=== PATIENT | male | born 1935 | race Caucasian/White ===

== ENCOUNTER 2017-06-18 12:19 | Emergency (ER) | payer MEDICARE, OTHER ==
[~2017-06-18] VITALS: Ht 170.2 cm; Wt 81.4 kg
[~2017-06-18 12:19] MED LIST: ASPIRIN E.C. 8181 MG PO; ATACAND32 MG PO; AVODART0.5 MG PO; BENADRYL25 M2; BIOTIN1 MG PO; CALCIUM + D 6001 TA1 PO; CARDURA 8MG TAB8 MG PO; CELEXA 20MG20 MG/TAB PO; DARVOCET N 101 UDTAB PO; DITROPAN 5MG TAB5 MG; DITROPAN 5MG TAB5 MG PO; FEXOFENADINE180 MG PO; GLUCOPHAGE XR500 M1 PO; LEVOTHYROXIN0.025 MG PO; LEXAPRO10 MG PO; METFORMIN500 MG PO; MICARDIS80 MG PO; NASOCORT; OMEGA 31000 MG PO; PREDNISONE20 MG PO; PRILOSEC20 MG PO; SIMVASTATIN20 MG PO; THERAPEUTIC VIT1 CAP PO; TRIAMTERENE/HCT1 TAB PO; [UNRECOGNIZED DRUG - MIXTURE]
[2017-06-18 12:30] VITALS: TEMP 98.5
[2017-06-18] MEDS ORDERED: NORVASC 5MG5 MG/TAB PO (12:37)
[2017-06-18] MEDS ORDERED: PHENERGAN W/CO120 M1 PO (12:54)
[2017-06-18] MEDS ORDERED: EPIPEN 2-PAK1 MG/ML IM (12:54)
[2017-06-18] MEDS ORDERED: PROSCAR 5MG5 MG PO (12:55)
[2017-06-18] MEDS ORDERED: FLONASE NASAL S16 GM NS (12:55)
[2017-06-18] MEDS ORDERED: ALLEGRA ALLERG180 MG PO (12:55)
[2017-06-18] MEDS ORDERED: NORCO 325 MG-51 TAB (12:57)
[2017-06-18] MEDS ORDERED: GLUCOTROL 5M5 MG/TAB PO (12:58)
[2017-06-18] MEDS ORDERED: COZAAR100 MG PO (12:59)
[2017-06-18] MEDS ORDERED: ACULAR 3 ML3 ML OU (12:59)
[2017-06-18] MEDS ORDERED: LANTUS100 U/ML SQ (12:59)
[2017-06-18] MEDS ORDERED: MAGNESIUM500 MG PO (13:00)
[2017-06-18] MEDS ORDERED: SINGULAIR 110 MG/TAB PO (13:00)
[2017-06-18] MEDS ORDERED: PATADAY 2.5 ML2.5 ML OU (13:00)
[2017-06-18] MEDS ORDERED: PRILOSEC 20MG20 MG PO (13:01)
[2017-06-18 13:24] LABS: BASO # 0.1 (0.0-0.2); BASO % 0.8 % (0.0-2.0); EOS # 0.4 (0.0-0.7); EOS % 4.6 % (0-4.0); GRAN # 5.4 (1.4-6.5); GRAN % 67.8 % (42.2-75.2); HEMATOCRIT 37.7 % (42.0-52.0); HEMOGLOBIN 13.2 g/dl (13.5-18.0); LYMPH # 1.6 (1.2-3.4); LYMPH % 19.8 % (20.0-51.0); MEAN CELL VOLUME 89 fl (80.0-100.0); MEAN CORPUSCULAR HEMOGLOBIN 31 pg (27.0-31.0); MEAN CORPUSCULAR HGB CONC 35 g/dl (33.0-37.0); MONO # 0.5 (0.1-0.6); MONO % 6.7 % (1.7-9.3); PLATELET COUNT 182 K/mm3 (130-400); RED BLOOD COUNT 4.22 M/mm3 (4.20-5.60); REDCELL DISTRIBUTION WIDTH-CV 12.1 % (11.5-14.5); WHITE BLOOD COUNT 7.9 K/mm3 (4.8-10.8)
[2017-06-18 13:27] LABS: ADJUSTED CALCIUM 9.2 mg/dL (8.4-10.2); ALANINE AMINOTRANSFERASE 30 U/L (21-72); ALBUMIN 4.3 gm/dL (3.5-5.0); ALKALINE PHOSPHATASE 53 U/L (50-136); ANION GAP 12 mmol/L (7-16); BILIRUBIN,TOTAL 0.7 mg/dL (0.0-1.0); BLOOD UREA NITROGEN 20 mg/dL (9-20); CALCIUM 9.4 mg/dL (8.4-10.2); CARBON DIOXIDE 31 mmol/L (22-30); CHLORIDE 97 mmol/L (98-107); CREATININE, serum 1.22 mg/dL (0.66-1.25); GLUCOSE 131 mg/dL (74-106); POTASSIUM 3.7 mmol/L (3.4-5.0); SODIUM 140 mmol/L (137-145); TOTAL PROTEIN 7.8 gm/dL (6.4-8.2)
[2017-06-18 13:29] LABS: PROTHROMBIN TIME 11.4 SECONDS (9.7-12.8)
[2017-06-18 13:31] LABS: PARTIAL THROMBOPLASTIN TIME 27.9 SECONDS (26.0-37.0)
[2017-06-18 13:39] LABS: TROPONIN-I < 0.012 ng/mL (0.000-0.034)
[2017-06-18 16:31] VITALS: BP 147/60; PULSE 60
== END 2017-06-18 16:39 | disposition home or self-care (01) ==
LOC: COL.ER 12:19
PROVIDERS: Emergency Medicine
DX: R20.9 Unspecified disturbances of skin sensation (principal); R53.1 Weakness; I10 Essential (primary) hypertension; E11.9 Type 2 diabetes mellitus without complications; E03.9 Hypothyroidism, unspecified; E78.5 Hyperlipidemia, unspecified; Z95.0 Presence of cardiac pacemaker; Z90.89 Acquired absence of other organs; Z79.84 Long term (current) use of oral hypoglycemic drugs; Z79.82 Long term (current) use of aspirin

== ENCOUNTER 2018-02-07 13:59 | Observation (INO) | payer MEDICARE, BC ==
[~2018-02-07] VITALS: Ht 170.2 cm; Wt 86.1 kg
[~2018-02-07 13:59] MED LIST changes: +ACULAR 3 ML3 ML OU; +ALLEGRA ALLERG180 MG PO; +COZAAR100 MG PO; +EPIPEN 2-PAK1 MG/ML IM; +FLONASE NASAL S16 GM NS; +GLUCOTROL 5M5 MG/TAB PO; +LANTUS100 U/ML SQ; +MAGNESIUM500 MG PO; +NORCO 325 MG-51 TAB; +NORVASC 5MG5 MG/TAB PO; +PATADAY 2.5 ML2.5 ML OU; +PHENERGAN W/CO120 M1 PO; +PRILOSEC 20MG20 MG PO; +PROSCAR 5MG5 MG PO; +SINGULAIR 110 MG/TAB PO
[2018-02-07 15:09] LABS: INR 1.1 (0.8-3.0); PROTHROMBIN TIME 12.2 SECONDS (9.7-12.8)
[2018-02-07 15:10] LABS: BASO # 0.1 (0.0-0.2); BASO % 1.1 % (0.0-2.0); EOS # 0.4 (0.0-0.7); EOS % 5.7 % (0-4.0); GRAN # 3.4 (1.4-6.5); GRAN % 52.8 % (42.2-75.2); HEMATOCRIT 37.7 % (42.0-52.0); HEMOGLOBIN 12.9 g/dl (13.5-18.0); LYMPH % 31.4 % (20.0-51.0); MEAN CELL VOLUME 90 fl (80.0-100.0); MEAN CORPUSCULAR HEMOGLOBIN 31 pg (27.0-31.0); MEAN CORPUSCULAR HGB CONC 34 g/dl (33.0-37.0); MEAN PLATELET VOLUME 10.7 fl (7.4-10.4); MONO # 0.6 (0.1-0.6); MONO % 8.8 % (1.7-9.3); PLATELET COUNT 183 K/mm3 (130-400); RED BLOOD COUNT 4.19 M/mm3 (4.20-5.60); REDCELL DISTRIBUTION WIDTH-CV 12.7 % (11.5-14.5)
[2018-02-07 15:19] LABS: ALANINE AMINOTRANSFERASE 31 U/L (21-72); ALBUMIN 4.1 gm/dL (3.5-5.0); ALKALINE PHOSPHATASE 53 U/L (50-136); ANION GAP 11 mmol/L (7-16); AST,SGOT 44 U/L (15-37); BILIRUBIN,TOTAL 0.5 mg/dL (0.0-1.0); BLOOD UREA NITROGEN 25 mg/dL (9-20); CALCIUM 9.1 mg/dL (8.4-10.2); CARBON DIOXIDE 31 mmol/L (22-30); CHLORIDE 98 mmol/L (98-107); CREATININE, serum 1.17 mg/dL (0.66-1.25); GLUCOSE 97 mg/dL (74-106); POTASSIUM 3.8 mmol/L (3.4-5.0); SODIUM 140 mmol/L (137-145); TOTAL PROTEIN 8.5 gm/dL (6.4-8.2)
[2018-02-07 15:31] LABS: TROPONIN-I < 0.012 ng/mL (0.000-0.034)
[2018-02-07] MEDS ORDERED: BIOTENE DRY M1000 ML MM (18:03)
[2018-02-07] MEDS ORDERED: SYSTANE 0.4%-0.1 SOL OU (18:05)
[2018-02-07 19:49] VITALS: BP 139/48; PULSE 60; TEMP 98.6
[2018-02-08 00:25] VITALS: BP 140/54; PULSE 62; TEMP 97.8
[2018-02-08 03:18] VITALS: BP 121/44; PULSE 64; TEMP 97.8
[2018-02-08 06:11] LABS: BASO # 0.1 (0.0-0.2); BASO % 0.7 % (0.0-2.0); EOS # 0.2 (0.0-0.7); EOS % 2.7 % (0-4.0); GRAN # 6.9 (1.4-6.5); HEMOGLOBIN 11.6 g/dl (13.5-18.0); LYMPH # 1.3 (1.2-3.4); MEAN CELL VOLUME 91 fl (80.0-100.0); MEAN CORPUSCULAR HEMOGLOBIN 31 pg (27.0-31.0); MEAN CORPUSCULAR HGB CONC 35 g/dl (33.0-37.0); MEAN PLATELET VOLUME 10.8 fl (7.4-10.4); MONO # 0.6 (0.1-0.6); MONO % 6.4 % (1.7-9.3); PLATELET COUNT 160 K/mm3 (130-400); RED BLOOD COUNT 3.71 M/mm3 (4.20-5.60); REDCELL DISTRIBUTION WIDTH-CV 12.6 % (11.5-14.5)
[2018-02-08 06:12] LABS: HEMATOCRIT 33.6 % (42.0-52.0)
[2018-02-08 06:27] LABS: CALCIUM 8.5 mg/dL (8.4-10.2); CHOLESTEROL RISK RATIO 3.2; CREATININE, serum 1.05 mg/dL (0.66-1.25); POTASSIUM 3.1 mmol/L (3.4-5.0)
[2018-02-08 08:40] VITALS: BP 149/62; PULSE 71; TEMP 98.1
[2018-02-08] MEDS ORDERED: LEVEMIR FLEX100 U/ML SQ (11:28)
[2018-02-08 11:30] VITALS: BP 144/49; PULSE 61; TEMP 98
[2018-02-08] MEDS ORDERED: PEPCID 20MG TAB20 MG PO (11:32)
[2018-02-08] MEDS ORDERED: PLAVIX 75MG TAB75 MG PO (11:33)
[2018-02-08 19:08] LABS: FOLATE (FOLIC ACID) 14.1 ng/mL (7.0-31.4)
== END 2018-02-08 11:20 | disposition home or self-care, planned readmission (81) ==
LOC: COL.ER 13:59 → MEDICAL 16:30
PROVIDERS: Emergency Medicine; Physician Assistant
DX: R20.2 Paresthesia of skin (principal); F32.9 Major depressive disorder, single episode, unspecified; N40.0 Benign prostatic hyperplasia without lower urinary tract symptoms; I10 Essential (primary) hypertension; E11.65 Type 2 diabetes mellitus with hyperglycemia; Z79.4 Long term (current) use of insulin; K21.9 Gastro-esophageal reflux disease without esophagitis; E03.9 Hypothyroidism, unspecified; G47.33 Obstructive sleep apnea (adult) (pediatric); I07.1 Rheumatic tricuspid insufficiency; Z79.82 Long term (current) use of aspirin; Z79.899 Other long term (current) drug therapy; Z95.0 Presence of cardiac pacemaker; I44.7 Left bundle-branch block, unspecified
CPT/HCPCS: G0378; J1650; J1815; J7030; Q9967

== ENCOUNTER 2023-06-12 17:14 | Outpatient (RCR) | payer MEDICARE, BC ==
[~2023-06-12 17:14] MED LIST changes: +BIOTENE DRY M1000 ML MM; +LEVEMIR FLEX100 U/ML SQ; -LEVOTHYROXIN0.025 MG PO; +MAXZIDE-25MG TA1 TAB PO; +PEPCID 20MG TAB20 MG PO; +PLAVIX 75MG TAB75 MG PO; -SIMVASTATIN20 MG PO; +SYNTHROID 0.0.025 MG PO; +SYSTANE 0.4%-0.1 SOL OU; -TRIAMTERENE/HCT1 TAB PO; +ZOCOR 20MG20 MG PO
[2023-06-17 12:31] VITALS: BP 145/69; PULSE 93; TEMP 98
[2023-06-17] MEDS ORDERED: IMOVAX RABIE2.5 UNI1 IM (13:05)
[2023-06-20 10:26] VITALS: BP 118/66; PULSE 62; TEMP 98.6
--- NOTE | 2023-06-20 10:45 | NUR ---
Pt tolerated vaccine without issue. He is escorted out waiting room, gait slow but steady, to meet his son.
[2023-06-25 12:00] VITALS: BP 115/49; PULSE 80; TEMP 99
== END 2023-06-25 12:22 ==
LOC: EUO 06-17 12:23
DX: Z23 Encounter for immunization (principal)

== ENCOUNTER → 2024-07-24 | Outpatient (CLI) | payer MEDICARE, BC ==
[~2024-07-24] MED LIST changes: +IMOVAX RABIE2.5 UNI1 IM
== END ==
LOC: MC.RAD 07:49
DX: N62 Hypertrophy of breast (principal)